=== PATIENT | male | born 1985 | race Caucasian/White ===

== ENCOUNTER 2020-02-23 12:47 | Emergency (ER) | payer OTHER ==
[~2020-02-23] VITALS: Ht 167.6 cm; Wt 68.0 kg
[2020-02-23 13:38] VITALS: BP 154/80
== END 2020-02-23 13:39 | disposition home or self-care (01) ==
LOC: ER 12:47
DX: Z76.0 Encounter for issue of repeat prescription (principal); R00.0 Tachycardia, unspecified; J45.909 Unspecified asthma, uncomplicated
CPT/HCPCS: 99283